=== PATIENT | female | born 1960 | race Caucasian/White ===

== ENCOUNTER 2016-10-07 14:59 | Outpatient (CLI) | payer OTHER | END 2016-10-07 15:00 | disposition home or self-care (01) | DX: M79.662 Pain in left lower leg (principal) ==

== ENCOUNTER 2018-01-21 21:30 | Outpatient (CLI) | payer OTHER | END 2018-01-21 21:31 | disposition critical access hospital (66) | LOC: EMS 21:30 | PROVIDERS: ATTEND Surgery | DX: R10.32 Left lower quadrant pain (principal); R11.2 Nausea with vomiting, unspecified | CPT/HCPCS: A0425; A0427 ==

== ENCOUNTER 2018-01-21 21:49 | Emergency (ER) | payer OTHER ==
[2018-01-21 22:25] LABS: BASOPHILS % (AUTO) 0.1 %; EOSINOPHILS % (AUTO) 0.2 %; HGB - HEMOGLOBIN 13.4 g/dL (12.0-16.0); LYMPHOCYTES % (AUTO) 21.7 %; MEAN CORPUSCULAR HEMOGLOBIN 30.4 pg (27.0-31.0); MEAN CORPUSCULAR HGB CONC 32.8 g/dL (32.0-36.0); MEAN CORPUSCULAR VOLUME 92.7 fL (81.0-99.0); MEAN PLATELET VOLUME 7.2 fL (7.9-10.8); MONOCYTES # (AUTO) 0.6 10^3/uL (0.0-1.0); MONOCYTES % (AUTO) 6.3 %; NEUTROPHILS # (AUTO) 6.7 10^3/uL (1.5-6.6); NEUTROPHILS % (AUTO) 71.7 %; PLT - PLATELET COUNT 441 10^3/uL (130-450); RED BLOOD COUNT 4.42 10^6/uL (4.20-5.40); RED CELL DISTRIBUTION WIDTH 13.2 % (12.0-15.0); WHITE BLOOD COUNT 9.3 x10^3/uL (4.8-10.8)
[2018-01-21 22:37] LABS: ALBUMIN 4.2 g/dL (3.2-5.5); ALBUMIN/GLOBULIN RATIO 1.4 (1.0-2.2); BILIRUBIN,TOTAL 0.9 mg/dL (0.2-1.0); CALCIUM 8.4 mg/dL (8.5-10.3); CREATININE 0.9 mg/dL (0.4-1.0); TOTAL PROTEIN 7.2 g/dL (6.7-8.2)
[2018-01-21] MEDS ORDERED: KETOROLAC 60 MG/2 ML VIAL IVP STA (22:50)
[2018-01-21] MEDS ORDERED: SODIUM CHLORIDE 0.9% 1,000 ML IV ONE (22:50)
[2018-01-21] MEDS ORDERED: IOPAMIDOL-300 100 ML VIAL ONE (22:52)
[2018-01-21] MEDS ORDERED: IOPAMIDOL-300 100 ML VIAL IVP ONE (23:22)
[2018-01-21 23:28] LABS: BILIRUBIN,URINE NEGATIVE (NEGATIVE); GLUCOSE, URINE (UA) NEGATIVE (NEGATIVE); KETONES,URINE (UA) 40 mg/dL (NEGATIVE); LEUKOCYTE ESTERASE, URINE NEGATIVE (NEGATIVE); NITRITE,URINE POSITIVE (NEGATIVE); OCCULT BLOOD,URINE LARGE (NEGATIVE); PH,URINE 5.5 PH (5.0-7.5); PROTEIN,URINE TRACE mg/dL (NEGATIVE); UROBILINOGEN,URINE 1 (NORMAL) E.U./dL (NORMAL)
[2018-01-21 23:30] LABS: CLARITY,URINE CLEAR (CLEAR)
--- NOTE | 2018-01-21 23:37 | CT Report ---
EXAM: CT ABDOMEN AND PELVIS EXAM DATE: 01/21/2018 11:03 PM. CLINICAL HISTORY: Left lower quadrant pain, nausea and vomiting. COMPARISONS: None. TECHNIQUE: Routine helical CT imaging was performed through the abdomen and pelvis. IV contrast: 100 ML ISOVUE 300. Enteric contrast: No. Reconstructions: Coronal and sagittal. In accordance with CT protocol optimization, one or more of the following dose reduction techniques w ere utilized for this exam: automated exposure control, adjustment of mA and/or KV based on patient s ize, or use of iterative reconstructive technique. FINDINGS: Lung Bases: Mild bibasilar atelectasis. Liver: Possible fatty infiltration. Gallbladder/Bile Ducts: Unremarkable. Spleen: Normal. Pancreas: Normal. Adrenal Glands: Normal. Kidneys: No significant abnormalities seen in the right kidney. Moderately obstructing 3 mm stone in the distal left ureter just above the ureterovesical junction. Peritoneal Cavity/Bowel: Moderate stool in the colon, right greater than left. No diverticulitis seen . No bowel obstruction. No free air or free fluid. No lymphadenopathy. Appendix appears normal. Pelvic Organs: Normal. The bladder and visualized pelvic organs are within normal limits. Vasculature: No aneurysms or other significant abnormality. Bones: No significant abnormality. Other: None. IMPRESSION: 1. Moderately obstructing 3 mm stone in the distal left ureter just above the ureterovesical junction . [facility] Referring Provider Line: [phone] SITE ID: [id number]
--- NOTE | 2018-01-21 23:37 | CT Preliminary Report ---
Exam: CT ABDOMEN/PELVIS W/ IMPRESSION: 1. Moderately obstructing 3 mm stone in the distal left ureter just above the ureterovesical junction . [facility] SITE ID: [id number]
[2018-01-21 23:43] LABS: BACTERIA,URINE Few /HPF (None Seen); SQUAMOUS EPITHELIAL CELL,UR RARE Squamous (<= Few)
[2018-01-21 23:44] LABS: CASTS, URINE 3-5 Hyaline Casts /LPF; MUCUS,URINE Few Strands
--- NOTE | 2018-01-22 00:13 | ED Physician Documentation ---
PD HPI ABD PAIN - Stated complaint Stated Complaint: LLQ PAIN, N/V - Chief complaint Chief Complaint: Abd Pain - History obtained from History obtained from: Patient - History of Present Illness Timing - onset: Today Timing - details: Intermittant, Waxing and waning Quality: Cramping, Aching Location: LLQ Associated symptoms: Nausea, Vomiting. No: Fever Similar symptoms before: Work up / diagnostics, Treatment Recently seen: Clinic - Additional information Additional information: Patient is a 57 year old female with a history of abdominal pain who is presenting to the emergency department for abdominal pain. Patient states that he work up has been unremarkable and that she might have to follow up with a urologist to check for cystits. Review of Systems Constitutional: denies: Fever, Chills Cardiac: denies: Chest pain / pressure, Palpitations Respiratory: denies: Dyspnea, Cough GI: reports: Abdominal Pain, Nausea, Vomiting. 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 - Present Medications Home Medications: Ambulatory Orders Medication Instructions Recorded Confirmed Gabapentin [Gralise] 1 tab PO DAILY 01/21/18 01/21/18 Ketorolac [Toradol] 10 mg PO Q6H #14 tablet 01/22/18 Ondansetron Odt [Zofran] 4 mg TL Q6H PRN #10 tablet 01/22/18 Tamsulosin [Flomax] 0.4 mg PO DAILY #14 capsule 01/22/18 - Allergies Allergies/Adverse Reactions: Allergies Allergy/AdvReac Type Severity Reaction Status Date / Time No Known Drug Allergies Allergy Unverified 01/21/18 21:52 - Social History Does the pt smoke?: No Smoking Status: Never smoker Does the pt drink ETOH?: No Does the pt have substance abuse?: No - Immunizations Immunizations are current?: Yes PD ED PE NORMAL - Vitals Vital signs reviewed: Yes - General General: Alert and oriented X 3 - HEENT HEENT: Atraumatic - Cardiac Cardiac: RRR - Respiratory Respiratory: No respiratory distress - Abdomen Abdomen: Soft - Derm Derm: Normal color, No rash - Extremities Extremities: No deformity - Neuro Neuro: Alert and oriented X 3 PD ED PE EXPANDED - General General: Alert, In Pain - HEENT HEENT: Dry mucous membranes - Abdomen Abdomen: Tender to palpation. No: Rebound, Guarding, LLQ Results - Vitals Vitals: Vital Signs - 24 hr 01/21/18 01/21/18 01/22/18 21:50 21:56 00:27 Temperature 36.5 C Heart Rate 60 78 Respiratory 20 16 Rate Blood Pressure 91/56 L 91/65 O2 Saturation 97 95 Oxygen O2 Source Room air - Labs Labs: Laboratory Tests 01/21/18 01/21/18 01/21/18 22:20 22:20 23:23 WBC 9.3 RBC 4.42 Hgb 13.4 Hct 41.0 MCV 92.7 MCH 30.4 MCHC 32.8 RDW 13.2 Plt Count 441 MPV 7.2 L Neut # 6.7 H Lymph # 2.0 [place] # 0.6 Eos # 0.0 Baso # 0.0 Absolute Nucleated RBC 0.00 Nucleated RBC % 0.0 Sodium 136 Potassium 4.6 Chloride 107 Carbon Dioxide 21 Anion Gap 8.0 BUN 27 H Creatinine 0.9 Estimated GFR (MDRD) 64 L Glucose 131 H Calcium 8.4 L Total Bilirubin 0.9 AST 26 ALT 25 Alkaline Phosphatase 46 Total Protein 7.2 Albumin 4.2 Globulin 3.0 Albumin/Globulin Ratio 1.4 Lipase 27 Urine Color YELLOW Urine Clarity CLEAR Urine pH 5.5 Ur Specific [place] 1.020 Urine Protein TRACE Urine Glucose (UA) NEGATIVE Urine Ketones 40 H Urine Occult Blood LARGE H Urine Nitrite POSITIVE H Urine Bilirubin NEGATIVE Urine Urobilinogen 1 (NORMAL) Ur Leukocyte Esterase NEGATIVE Urine RBC 11-25 H Urine WBC 4-5 Ur Squamous Epith Cells RARE Squamous Urine Bacteria Few Urine Casts 3-5 Hyaline Casts Urine Mucus Few Strands Ur Microscopic Review INDICATED Urine Culture Comments INDICATED - Rads (name of study) ct abd and pelvis Radiology: Final report received (3mm left uvj stone with mild hydro) PD MEDICAL DECISION MAKING - ED course Complexity details: reviewed old records, reviewed results, re-evaluated patient , considered differential, d/w patient ED course: Patient was seen and examined at bedside. IV access was gained and patient was treated with a fluid bolus. patient had already received 150mcg of fentanyl in the field. Imaging was ordered. When patient returned from imaging patient stated that she was still in pain and was treated with toradol with good relief. patient was found to have a small left sided stone which was likely the culprit. Patient was well appearing and in no distress. patient had no infection and was able to tolerate PO. patient was stable for discharge with outpatient follow up. Departure - Departure Disposition: 01 Home, Self Care Clinical Impression: Kidney stone on left side Condition: Good Instructions: ED Stone Renal W Colic Follow-Up: primary,care provider [Other] - Within 3 Days Prescriptions: Ketorolac [Toradol] 10 mg PO Q6H #14 tablet Ondansetron Odt [Zofran] 4 mg TL Q6H PRN #10 tablet PRN Reason: Nausea / Vomiting Tamsulosin [Flomax] 0.4 mg PO DAILY #14 capsule Comments: Your symptoms today are being caused by a kidney stone. You will need to stay well hydrated. You can take tylenol or toradol as needed for pain. You should follow up with your doctor if your symptoms persist. You may return to the emergency department at any time for new, worsening or uncontrollable symptoms. Discharge Date/Time: 01/22/18 00:27
[2018-01-22 00:27] VITALS: BP 91/65
== END 2018-01-22 00:27 | disposition home or self-care (01) ==
LOC: EDUNIT# → ED 21:49
DX: N20.2 Calculus of kidney with calculus of ureter (principal)
CPT/HCPCS: 36415; 74177; 80053; 81001; 83690; 85025; 87086; 96374; 99284; Q9967; 81003

== ENCOUNTER 2024-05-29 14:55 | Emergency (ER) | payer MEDICARE, OTHER ==
--- NOTE | 2024-05-29 15:09 | ED Physician Documentation ---
History of Present Illness - Stated complaint Stated Complaint: CP,FEVER,COUGH - History obtained from History obtained from: Patient - Additonal information Additional information: This is a very healthy 64-year-old woman who for the last 2 to 3 weeks has had a cough intermittently productive with fevers. Starting this morning at 315 she developed some left-sided chest heaviness. No shortness of breath per se. She had some telehealth visits with her dog but no diagnostics were completed.. That said she did have some home COVID test that were negative. 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 - Present Medications Home Medications: Ambulatory Orders Medication Instructions Recorded Confirmed Gabapentin [Gralise] 1 tab PO DAILY 01/21/18 01/21/18 Ketorolac [Toradol] 10 mg PO Q6H #14 tablet 01/22/18 Ondansetron Odt [Zofran] 4 mg TL Q6H PRN #10 tablet 01/22/18 Tamsulosin [Flomax] 0.4 mg PO DAILY #14 capsule 01/22/18 Amoxicillin/Potassium Clav 2 tab PO BID 5 Days #20 ea 05/29/24 [Augmentin Xr 1,000-62.5 Tab] Azithromycin [Zithromax] 1 tab PO DAILY #4 tab 05/29/24 - Allergies Allergies/Adverse Reactions: Allergies Allergy/AdvReac Type Severity Reaction Status Date / Time No Known Drug Allergies Allergy Verified 05/29/24 15:05 - Social History Does the pt smoke?: No Smoking Status: Never smoker Does the pt drink ETOH?: No Does the pt have substance abuse?: No - Immunizations Immunizations are current?: Yes PD ED PE NORMAL - Vitals Vital signs reviewed: Yes (Mild resting tachycardia and she is febrile) - General General: Alert and oriented X 3, No acute distress - HEENT HEENT: PERRL, EOMI - Neck Neck: Supple, no meningeal sign, No bony TTP - Cardiac Cardiac: Other (Mild resting tachycardia, no murmur, regular) - Respiratory Respiratory: Other (Some rhonchi throughout, no focal findings, nonlabored.) - Abdomen Abdomen: Normal bowel sounds, Soft, Non tender - Extremities Extremities: No edema, No calf tenderness / cord - Neuro Neuro: Alert and oriented X 3 Results - Vitals Vitals: Vital Signs - 24 hr 05/29/24 15:05 Temperature 38.2 C H Heart Rate 115 H Respiratory 20 Rate Blood Pressure 114/84 H O2 Saturation 98 Oxygen O2 Source Room air - EKG (time done) 1525 EKG releavant findings:: EKG personally interpreted by author of this note. Relevant findings are: Rate: Rate (enter#) (96) Rhythm: Sinus tachycardia, LAE Intervals: Normal MT QRS: Normal Ischemia: Normal ST segments - Labs Labs: Laboratory Tests 05/29/24 05/29/24 05/29/24 15:15 15:15 15:15 WBC 20.3 H RBC 4.01 L Hgb 12.3 Hct 37.1 MCV 92.5 MCH 30.7 MCHC 33.2 RDW 14.1 Plt Count 563 H MPV 8.8 Neut # (Auto) 15.4 H Lymph # (Auto) 2.5 [place] # (Auto) 1.6 H Eos # (Auto) 0.0 Baso # (Auto) 0.1 Absolute Nucleated RBC 0.00 Band Neuts % (Manual) Not Reportable Abnorm Lymph % (Manual) Not Reportable Nucleated RBC % 0.0 Neutrophils # (Manual) Not Reportable Lymphocytes # (Manual) Not Reportable Monocytes # (Manual) Not Reportable Eosinophils # (Manual) Not Reportable Basophils # (Manual) Not Reportable Differential Comment MANUAL=AUTO DIFF Manual Slide Review Indicated Platelet Estimate INCREASED (>450,000) Platelet Morphology NORMAL APPEARANCE RBC Morph Micro Appear NORMAL APPEARANCE Sodium 136 Potassium 3.8 Chloride 103 Carbon Dioxide 25 Anion Gap 8.0 BUN 14 Creatinine 0.8 Estimated GFR (MDRD) 72 L Glucose 134 H Lactic Acid Calcium 9.5 Total Bilirubin 0.4 AST 75 H ALT 67 H Alkaline Phosphatase 82 Troponin I High Sens 6.8 Total Protein 7.4 Albumin 3.5 Globulin 3.9 Albumin/Globulin Ratio 0.9 L 05/29/24 15:21 WBC RBC Hgb Hct MCV MCH MCHC RDW Plt Count MPV Neut # (Auto) Lymph # (Auto) [place] # (Auto) Eos # (Auto) Baso # (Auto) Absolute Nucleated RBC Band Neuts % (Manual) Abnorm Lymph % (Manual) Nucleated RBC % Neutrophils # (Manual) Lymphocytes # (Manual) Monocytes # (Manual) Eosinophils # (Manual) Basophils # (Manual) Differential Comment Manual Slide Review Platelet Estimate Platelet Morphology RBC Morph Micro Appear Sodium Potassium Chloride Carbon Dioxide Anion Gap BUN Creatinine Estimated GFR (MDRD) Glucose Lactic Acid 1.9 Calcium Total Bilirubin AST ALT Alkaline Phosphatase Troponin I High Sens Total Protein Albumin Globulin Albumin/Globulin Ratio - Rads (name of study) 1v CXR- RLL PNA Relevant Findings:: Final report received, EMP independent interpretation of test PD Medical Decision Making - ED course ED course: 64-year-old woman has been sick for 2 to 3 weeks with cough and fever and today has atypical chest pain. She was found to have right lower lobe pneumonia with elevated white count and mild elevation of blood sugar and liver enzymes. Her lactate was normal/negative. She received some IV fluids as well as IV Rocephin and Zithromax with blood cultures pending. Her PSI score is 56. Heart score is 2, for age only. We discussed pending blood cultures and need to be responsive to phone calls for follow-up. Departure - Departure Disposition: 01 Home, Self Care Clinical Impression: Pneumonia Qualifiers: Pneumonia type: due to unspecified organism Laterality: right Lung location: lower lobe of lung Qualified Code(s): J18.9 - Pneumonia, unspecified organism Chest pain Qualifiers: Chest pain type: unspecified Qualified Code(s): R07.9 - Chest pain, unspecified Condition: Good Instructions: ED Chest Pain NonCardiac, ED Pneumonia Adult Prescriptions: Amoxicillin/Potassium Clav [Augmentin Xr 1,000-62.5 Tab] 2 tab PO BID 5 Days #20 ea Azithromycin [Zithromax] 1 tab PO DAILY #4 tab Comments: You were seen today for the illness and the chest pain. As far as the chest pain goes, your cardiac enzymes and EKG were without signs of heart damage. As far as the illness goes, you did have pneumonia in the right lower lobe and your labs were notable for an elevated white blood cell count and platelet count which are normal when you are ill. Also your blood sugar and liver enzymes were mildly elevated. These are all likely related to the illness but would recommend you follow-up with your primary care physician with consideration for recheck of your liver enzymes and blood sugar when resolved. I sent your prescription electronically to the [facility] in [place]. Call your doctor to arrange a follow-up appointment, make the next available appointment. In the interim, return anytime if worse or if new symptoms develop. Forms: PCP List
[2024-05-29] MEDS: ACETAMINOPHEN 500 MG TABLET PO STA (15:23)
--- NOTE | 2024-05-29 15:27 | XRAY Report ---
PROCEDURE: Chest 1V INDICATIONS: cough fever TECHNIQUE: One view of the chest was acquired. COMPARISON: CT chest dated 03/26/2013 FINDINGS: Surgical changes and devices: None. Lungs and pleura: No pleural effusions or pneumothorax. Right lung base consolidation. Minimal strea [place] bibasilar opacities favored to represent atelectasis. Mediastinum: Mediastinal contours appear normal. Heart size is normal. Bones and chest wall: No suspicious bony lesions. Overlying soft tissues appear unremarkable. IMPRESSION: Right basilar consolidation compatible with pneumonia. Recommend follow-up chest radiograph 4-6 weeks after treatment to document resolution of findings and /or return to baseline exam. Reviewed by: Gustavo Karimi MD on 05/29/2024 2:25 PM [facility] Approved by: Gustavo Karimi MD on 05/29/2024 2:25 PM [facility] Station ID: [id number]
[2024-05-29 15:37] LABS: BASOPHILS # (AUTO) 0.1 10^3/uL (0.0-0.1); BASOPHILS % (AUTO) 0.3 %; EOSINOPHILS % (AUTO) 0.1 %; HCT - HEMATOCRIT 37.1 % (37.0-47.0); HGB - HEMOGLOBIN 12.3 g/dL (12.0-16.0); LYMPHOCYTES # (AUTO) 2.5 10^3/uL (1.5-3.5); LYMPHOCYTES % (AUTO) 12.2 %; MEAN CORPUSCULAR HEMOGLOBIN 30.7 pg (27.0-31.0); MEAN CORPUSCULAR HGB CONC 33.2 g/dL (32.0-36.0); MEAN CORPUSCULAR VOLUME 92.5 fL (81.0-99.0); MEAN PLATELET VOLUME 8.8 fL (7.9-10.8); MONOCYTES # (AUTO) 1.6 10^3/uL (0.0-1.0); MONOCYTES % (AUTO) 7.7 %; NEUTROPHILS # (AUTO) 15.4 10^3/uL (1.5-6.6); NEUTROPHILS % (AUTO) 75.6 %; PLT - PLATELET COUNT 563 10^3/uL (130-450); RED BLOOD COUNT 4.01 10^6/uL (4.20-5.40); RED CELL DISTRIBUTION WIDTH 14.1 % (12.0-15.0); SLIDE REVIEW? Indicated; WHITE BLOOD COUNT 20.3 x10^3/uL (4.8-10.8)
[2024-05-29] MEDS: SODIUM CHLORIDE 0.9% 1,000 ML IV STA (15:42)
[2024-05-29] MEDS: AZITHROMYCIN INJ 500 MG in SODIUM CHLORIDE 0.9% 250 ML IV STA (15:42)
[2024-05-29 15:43] LABS: ALBUMIN 3.5 g/dL (3.2-5.5); ALBUMIN/GLOBULIN RATIO 0.9 (1.0-2.2); BILIRUBIN,TOTAL 0.4 mg/dL (0.2-1.0); CALCIUM 9.5 mg/dL (8.5-10.3); CREATININE 0.8 mg/dL (0.6-1.3); POTASSIUM 3.8 mmol/L (3.5-4.5); TOTAL PROTEIN 7.4 g/dL (6.4-8.9)
[2024-05-29] MEDS: cefTRIAXone 1 GM VIAL IVP STA (15:46)
[2024-05-29 15:57] LABS: DIFFERENTIAL COMMENT MANUAL=AUTO DIFF; PLATELET ESTIMATE, MANUAL INCREASED (>450,000) (NORMAL); PLATELET MORPHOLOGY NORMAL APPEARANCE (NORMAL); RBC MORPHOLOGY (MULTIPLE) NORMAL APPEARANCE (NORMAL)
[2024-05-29 16:39] VITALS: O2SAT 97
[2024-05-29 16:59] VITALS: BP 102/71
== END 2024-05-29 16:59 | disposition home or self-care (01) ==
LOC: ED 14:55
DX: J18.9 Pneumonia, unspecified organism (principal); R00.0 Tachycardia, unspecified; R73.9 Hyperglycemia, unspecified
CPT/HCPCS: 36415; 71045; 80053; 83605; 84484; 85025; 87040; 93005; 96365; 96375; 99284; A9270